=== PATIENT | female | born 1985 | race Hispanic/Latino ===

== ENCOUNTER 2020-12-29 12:06 | Emergency (ER) | payer OTHER ==
[~2020-12-29 12:06] MED LIST: CIPR500T10 PO; HYDR25TA PO; IBUP-2071 PO; LABE200T5 PO; METR500T PO
[2020-12-29] MEDS ORDERED: KETOROLAC TROMETHAMINE 30MG/ML ONE (14:14)
[2020-12-29] MEDS ORDERED: HYDROCODONE/ACETAMINOPHEN 5/325 MG TAB ONE (14:15)
== END 2020-12-29 16:25 | disposition home or self-care (01) ==
LOC: EDH 12:06
DX: S30.1XXA Contusion of abdominal wall, initial encounter (principal); S20.219A Contusion of unspecified front wall of thorax, initial encounter; I10 Essential (primary) hypertension; W18.39XA Other fall on same level, initial encounter; Y93.89 Activity, other specified; Y92.89 Other specified places as the place of occurrence of the external cause; Y99.8 Other external cause status
CPT/HCPCS: 71250; 73552; 74176; 81025; 96372; 99285; J1885